=== PATIENT | male | born 1965 | race Asian ===

== ENCOUNTER 2024-05-13 13:18 | Emergency (ER) | payer OTHER, SELFPAY ==
[2024-05-13] VITALS (24 sets, daily range): BP systolic 129–160; BP diastolic 76–92; PULSE 100–131; RESP 2–31; TEMP 37.5–37.6; O2SAT 97–100
--- NOTE | ~2024-05-13 | CT_ITS ---
EXAMINATION: CT abdomen pelvis w con DATE: 05/13/2024 17:28 INDICATION: Abdominal pain. Transaminitis. TECHNIQUE: Computed tomography (CT) of the abdomen and pelvis was performed with 100 mL Omnipaque-350 intravenous contrast. Automated exposure control and iterative reconstruction technique were employe d. The dose-length product was 458.71 mGy-cm. COMPARISON: None FINDINGS: Mild dependent atelectasis in the bilateral lower lobes. Heart size normal. No pericardial or pleural effusion. Cholecystectomy clips in the gallbladder fossa. Mild to moderate intrahepatic biliary duct al dilation with the right and left hepatic ducts measuring 12 mm and 10 mm in diameter respectively. The common bile duct at the head of the pancreas measures 6 mm maximal diameter with some intralumin al densities distally suggesting obstructing sludge or stones. Pancreas, spleen, bilateral adrenal gl ands and left kidney are normal. 8 mm right renal cyst. Bowels including the appendix are normal. Sunny dder is normal. Mild prostatomegaly. No free intraperitoneal gas or fluid. No pathologically enlarged abdominal or pelvic lymphadenopathy. Very small fat-containing right inguinal hernia. Mild scattered degenerative skeletal changes in the spine and pelvis. IMPRESSION: 1. Mild to moderate intrahepatic ductal dilation with attenuation material within the distal common b ile duct suspicious for obstructing sludge versus stones. Consider ERCP. Reviewed, dictated and finalized at location A. IMPRESSION: 1. Mild to moderate intrahepatic ductal dilation with attenuation material with in the distal common bile duct suspicious for obstructing sludge versus stones. Consider ERCP.
--- NOTE | ~2024-05-13 | US_ITS ---
EXAMINATION: US abdomen limited DATE: 05/13/2024 17:09 INDICATION: Abdominal pain. Hyperbilirubinemia. TECHNIQUE: Multiple grayscale and Doppler ultrasound images of the abdomen were obtained. COMPARISON: None FINDINGS: Visualized portion of the body the pancreas is normal. Significant portion of the pancreas including the head and tail are obscured by shadowing bowel gas. Liver has normal echogenicity and contour, wit h a smooth surface. No liver lesion identified. No intrahepatic biliary duct dilation suspected. Port al venous flow was seen in the hepatopetal, normal direction and has normal Doppler waveform. The gal lbladder is not visualized and reportedly surgically absent. The common bile duct measures up to 9 mm in maximal diameter which is within normal limits post cholecystectomy. The distal common bile duct is also obscured by shadowing bowel gas. 8 mm cyst at the peripheral lower pole the right kidney whic h demonstrate otherwise normal contour and echogenicity with no hydronephrosis. This is proximal infe rior vena cava is normal. IMPRESSION: 1. Mild dilation the common bile duct measuring up to 9 mm which is within normal limits post cholecy stectomy but given the provided history of hyperbilirubinemia and the obscuration of the distal commo n bile duct could consider MRCP for further evaluation. Reviewed, dictated and finalized at location A. IMPRESSION: 1. Mild dilation the common bile duct measuring up to 9 mm which is within norm al limits post cholecystectomy but given the provided history of hyperbilirubin emia and the obscuration of the distal common bile duct could consider MRCP for further evaluation.
--- NOTE | 2024-05-13 13:59 | ED.ABDPAIN ---
HPI - Abdominal Pain General Chief Complaint: Abdominal Pain Stated Complaint: abd pain since 05/12/24 Time Seen by Provider: 05/13/24 14:00 Focused HPI: This is a 59-year-old male that presents to the emergency department for mid abdominal pain. Ongoing since yesterday. He tried to go to work, but was in too much pain which prompted him to be seen in the ER. He did take ibuprofen with little relief. Reports some nausea. Denies fevers, vomiting, diarrhea, or dysuria. GENERAL: Well-appearing, well-nourished, and in no acute distress. HEAD: Normocephalic, atraumatic. CHEST: Clear to auscultation. ?No respiratory distress. HEART: Regular rate and rhythm.? NEURO: ?Alert and oriented x3. Patient screened in triage and initial orders placed.? ?Additional care and disposition to be based upon?diagnostic testing and treatment. Related Data Allergies Allergy/AdvReac Type Severity Reaction Status Date / Time No Known Drug Allergies Allergy Unknown Unknown Verified 05/13/24 13:19 Review of Systems Review of Systems: CONSTITUTIONAL: Denies fever GASTROINTESTINAL: Reports abdominal pain, nausea. Denies vomiting, or diarrhea. GENITOURINARY: Denies dysuria or hematuria. All systems reviewed & are unremarkable except as noted in HPI and below PMFSH Past Medical History Medical History (Updated 05/14/24 @ 00:00 by Background Daemon) History of hyperlipidemia History of hypertension Surgical History Surgical History (Updated 05/13/24 @ 15:43 by Elizabeth Ayala PA-C) History of cholecystectomy Social History Social History (Updated 05/13/24 @ 15:44 by Elizabeth Ayala PA-C) Substance use: never Exam Narrative: GENERAL: Well-appearing, well-nourished, and in no acute distress. HEAD: Normocephalic, atraumatic. EYES: EOMI. CHEST: Clear to auscultation. No respiratory distress. No wheezes rales or rhonchi HEART: Regular rate and rhythm. No murmur heard. Normal peripheral pulses. ABDOMEN: Soft, nondistended, normal active bowel sounds. Mild tenderness to palpation in the mid abdomen and epigastrium, without guarding EXTREMITIES: Normal range of motion. No edema. SKIN: Warm, dry, no rash. NEURO: No focal deficits. Alert and oriented x3. PSYCH: Normal mood and affect Course Course Emergency Course: patient updated on his workup and need for transfer for higher level of care Consultations Consultation #1: Spoke with Dr. Turner hospitalist at [facility] who accepts transfer. they do have GI available for consultation/management Date: 05/13/24 Vital Signs Vital signs: Vital Signs Temperature 99.5 F 05/13/24 13:57 Pulse Rate 100 05/13/24 13:57 Respiratory Rate 16 05/13/24 13:57 Blood Pressure 130/91 H 05/13/24 13:57 Pulse Oximetry 99 05/13/24 13:57 Oxygen Delivery Room Air 05/13/24 13:57 Temperature 99.7 F H 05/13/24 20:18 Pulse Rate 126 H 05/13/24 20:52 Respiratory Rate 15 05/13/24 20:52 Blood Pressure 150/86 H 05/13/24 20:52 Pulse Oximetry 100 05/13/24 20:52 Oxygen Delivery Room Air 05/13/24 13:57 MDM - Abdominal Pain MDM Narrative Medical decision making narrative: Patient presents to the emergency department for mid abdominal pain. Borderline febrile. Intermittently tachycardic. Hydrated with IV fluids. His blood pressure is stable. CBC with leukocytosis to 13.2. Metabolic panel with significant transaminitis and hyperbilirubinemia. Urine without evidence of infection. CT abdomen pelvis shows [id number] intrahepatic ductal dilation with suspicion for sludge versus a stone. Right upper quadrant ultrasound also shows dilation of the common bile duct. Unfortunately we do not have GI on over the weekend. Spoke with patient and his family about his workup and need for transfer for further specialty evaluation and management. Spoke with Dr. Turner, hospitalist at [facility] who accepts transfer. They do have GI available for consultation/management Di
[2024-05-13 15:18] LABS: Basophils Percent Auto 0.2 % (0.2-1.2); Eosinophils Percent Auto 0.3 % (0-4.4); Hematocrit 39.7 % (42.0-52.0); Hemoglobin 13.5 g/dL (14.0-18.0); Immature Granulocyte Absolute 0.06 K/mm3 (0.00-0.031); Immature Granulocyte Percent A 0.5 % (0-0.5); Lymphocytes Absolute Auto 0.82 K/mm3 (0.9-3.2); Lymphocytes Percent Auto 6.2 % (18.3-44.2); Mean Corpuscular Hemoglobin 29.4 pg (26-34); Mean Corpuscular Volume 86.5 fl (80-100); Mean Platelet Volume 11.3 fl (7.4-10.4); Monocytes Absolute Auto 0.7 K/mm3 (0.1-0.6); Neutrophils Absolute Auto 11.6 K/mm3 (1.3-6.7); Neutrophils Percent Auto 87.8 % (45.5-73.1); Platelet Count Result 196 k/mm3 (150-375); Red Blood Count 4.59 M/mm3 (4.6-6.20); Red Cell Distribution Width 13.7 % (11.5-14.5); White Blood Count 13.2 K/mm3 (4.5-10.0)
[2024-05-13 15:46] LABS: Albumin Level 4.6 g/dL (3.5-5.1); Alkaline Phosphatase 167 U/L (38-126); Anion Gap 8 mmol/L (4-12); Bilirubin,Total 4.3 mg/dL (0.2-1.3); Blood Urea Nitrogen 19 mg/dL (9-20); Calcium 10.1 mg/dL (8.4-10.2); Carbon Dioxide 26 mmol/L (22-30); Chloride 102 mmol/L (98-107); Estimated CRCL calculation 99 ml/min; Estimated Glomerular Filt Rate > 60; Glucose 169 mg/dL (65-110); Lipase 127 U/L (23-300); Potassium 3.9 mmol/L (3.4-5.0); Sodium 136 mmol/L (137-145)
[2024-05-13] MEDS: PANTOPRAZOLE SODIUM IV 40 MG VIAL IV PUSH (16:31)
[2024-05-13 17:00] LABS: Alanine Aminotransferase 1588 U/L (6-50); Aspartate Amino Transferase 1403 U/L (17-59)
[2024-05-13 17:00] LABS: Appearance Urine Clear (Clear); Bilirubin Urine Negative (Negative); Blood Urine Negative (Negative); Color Urine Dark Yellow (Yellow); Glucose Urine UA Negative (Negative); Ketones Urine Negative (Negative); Leukocyte Esterase Ur Negative LEU/UL (Negative); Nitrate Urine Negative (Negative); Protein Urine Negative (Negative)
[2024-05-13 17:05] LABS: Add Urine Microscopic? NO
[2024-05-13] MEDS: ONDANSETRON INJ 4 MG/2 ML VIAL IV PUSH (18:56)
[2024-05-13] MEDS: MORPHINE SULFATE (*CRX) 4 MG/ML INJ IV PUSH (18:57)
[2024-05-13] MEDS: SODIUM CHLORIDE 0.9% IV 1,000 ML 999 ML IV CONT ×2 (18:57→20:18)
--- NOTE | 2024-05-13 19:21 | PC.NURSE ---
Patient accepted at [facility] room 540; Attempted report-told they will call back.
--- NOTE | 2024-05-13 20:04 | PC.NURSE ---
Report called to [facility]; Report Leigh RICHARDSON. Ambulance called for transport.
[2024-05-13] MEDS: IBUPROFEN IV 400 MG in SODIUM CHLORIDE 0.9% IV 100 ML 200 MG IVPB (20:18)
== END 2024-05-13 20:54 | disposition short-term general hospital (02) ==
PROVIDERS: Emergency Provider Physician Assistant
DX: K80.50 Calculus of bile duct without cholangitis or cholecystitis without obstruction (principal); I10 Essential (primary) hypertension; E78.5 Hyperlipidemia, unspecified; Z90.49 Acquired absence of other specified parts of digestive tract
CPT/HCPCS: 36415; 74177; 76705; 80053; 81003; 83690; 85025; 96361; 96365; 96375; 99285; C9113; J1741; J2270; J2405; J7030; Q9967